=== PATIENT | male | born 1955 | race African-American/Black ===

== ENCOUNTER 2021-07-19 21:56 | Inpatient (IN) | payer MEDICAID ==
[~2021-07-19] VITALS: Ht 188 cm; Wt 69.0 kg
[2021-07-19] MEDS ORDERED: CHLO25TA3 PO (22:35)
[2021-07-19] MEDS ORDERED: AMLO10TA55 PO (22:35)
[2021-07-19] MEDS ORDERED: CLON-353 PO ×2 (22:35)
[2021-07-19] MEDS ORDERED: METF-845 PO (22:35)
[2021-07-19] MEDS ORDERED: GABA-1181 PO (22:35)
[2021-07-19] MEDS ORDERED: CLON-441 PO (22:35)
[2021-07-19] MEDS ORDERED: CLOP75TA14 PO (22:35)
[2021-07-19] MEDS ORDERED: ATOR80TA PO (22:38)
[2021-07-19] MEDS ORDERED: LISI-661 PO (22:38)
[2021-07-19] MEDS ORDERED: NALOXONE HCL 1 MG/ML 2 ML SYRINGE IVP ONE (23:00)
[2021-07-19 23:03] LABS: BASOPHILS % (AUTO) 2.6 % (0.0-2.0); EOSINOPHILS % (AUTO) 8.7 % (1.0-6.0); HEMATOCRIT 41.9 % (41-53); HEMOGLOBIN 13.8 g/dL (13.5-17.5); LYMPHOCYTES % (AUTO) 26.5 % (22.0-44.0); MEAN CORPUSCULAR HGB CONC 32.8 G/dL (31.0-37.0); MEAN CORPUSCULAR VOLUME 88 fL (80-100); MONOCYTES # (AUTO) 0.5 K/uL (0.1-1.0); NEUTROPHILS # (AUTO) 1.8 K/uL (1.8-7.7); NEUTROPHILS % (AUTO) 48.2 % (40.0-70.0); PLATELET COUNT (AUTO) 247 K/uL (150-450); RED BLOOD CELL COUNT(AUTO) 4.74 MIL/uL (4.50-5.90); RED CELL DISTRIBUTION WIDTH 14.8 % (11.5-14.5)
[2021-07-19 23:12] LABS: CALCIUM, TOTAL 9.1 mg/dL (8.8-10.5); CREATININE 1.64 mg/dL (0.60-1.30); POTASSIUM 4.1 mmol/L (3.5-5.1)
[2021-07-19 23:17] LABS: ALBUMIN 3.3 g/dL (3.4-5.0); BILIRUBIN,TOTAL 0.3 mg/dL (0.1-1.0); TOTAL PROTEIN, SERUM 8.1 g/dL (6.4-8.2)
[2021-07-20 01:06] LABS: COVID AG,FIA SOURCE NASAL SWAB
[2021-07-20] MEDS ORDERED: ONDANSETRON HCL 4 MG/2 ML VIAL IVP PRN (01:15)
[2021-07-20] MEDS ORDERED: ACETAMINOPHEN 325 MG TABLET PO PRN (01:15)
[2021-07-20 04:29] LABS: APPEARANCE,URINE CLEAR (CLEAR); BILIRUBIN,URINE NEGATIVE (NEGATIVE); GLUCOSE, URINE (UA) NEGATIVE (NEGATIVE); KETONES,URINE NEGATIVE (NEGATIVE); LEUKOCYTE ESTERASE ,URINE NEGATIVE (NEGATIVE); NITRATE,URINE NEGATIVE (NEGATIVE); OCCULT BLOOD,URINE NEGATIVE (NEGATIVE); PH,URINE 5.5 (5.0-8.0); PROTEIN,URINE TRACE mg/dL (NEGATIVE); SPECIFIC GRAVITIY, URINE 1.022 (1.003-1.030); UROBILINOGEN,URINE <=1.0 mg/dL (<=1.0)
[2021-07-20 04:36] LABS: AMPHET/METH SCREEN,URINE NEGATIVE (NEGATIVE); BARBITURATE SCREEN, URINE NEGATIVE (NEGATIVE); BENZODIAZEPINES SCREEN,URINE NEGATIVE (NEGATIVE); CANNABINOID SCREEN,URINE NEGATIVE (NEGATIVE); COCAINE SCREEN,URINE NEGATIVE (NEGATIVE); METHADONE SCREEN, URINE NEGATIVE (NEGATIVE); OPIATE SCREEN,URINE NEGATIVE (NEGATIVE)
[2021-07-20 04:37] LABS: PHENCYCLIDINE SCREEN,URINE NEGATIVE (NEGATIVE)
[2021-07-20 04:41] LABS: BACTERIA,URINE None Seen /HPF (None Seen); RBC,URINE None Seen /HPF (0-2); WBC,URINE None Seen /HPF (0-5)
[2021-07-20 04:42] LABS: HYALINE CASTS, URINE 0-2 /LPF (None Seen); MUCUS,URINE Few LPF (None Seen)
[2021-07-20 05:06] VITALS: BP 104/67
[2021-07-20 07:53] VITALS: BP 108/60
[2021-07-20] MEDS: CHLORTHALIDONE 25 MG TABLET PO SCH (09:00)
[2021-07-20] MEDS ORDERED: LISINOPRIL 10 MG TABLET PO SCH (09:00)
[2021-07-20] MEDS: ATORVASTATIN CALCIUM 40 MG TABLET PO SCH (09:34)
[2021-07-20] MEDS: CLOPIDOGREL BISULFATE 75 MG TABLET PO SCH (09:35)
[2021-07-20] MEDS: AmLODIPine BESYLATE 10 MG TABLET PO SCH (09:35)
[2021-07-20] MEDS: HEPARIN SODIUM,PORCINE 5,000 UNITS/ML VIAL SQ SCH ×3 (09:36→23:21)
[2021-07-20 11:18] VITALS: BP 137/64
[2021-07-20 13:21] LABS: GLUCOMETER DEV NAME(LOC) 5S.2B; GLUCOSE,POINT OF CARE 89 MG/DL (70-110)
[2021-07-20 15:43] VITALS: BP 107/64
[2021-07-20 18:21] LABS: GLUCOMETER DEV NAME(LOC) 5S.2B; GLUCOSE,POINT OF CARE 97 MG/DL (70-110)
[2021-07-20 19:43] VITALS: BP 105/65
[2021-07-20 23:32] VITALS: BP 110/70
[2021-07-21 04:22] VITALS: BP 135/75
[2021-07-21 08:02] VITALS: BP 125/73
[2021-07-21] MEDS: CLOPIDOGREL BISULFATE 75 MG TABLET PO SCH (08:09)
[2021-07-21] MEDS: ATORVASTATIN CALCIUM 40 MG TABLET PO SCH (08:09)
[2021-07-21] MEDS: AmLODIPine BESYLATE 10 MG TABLET PO SCH (08:09)
[2021-07-21] MEDS: HEPARIN SODIUM,PORCINE 5,000 UNITS/ML VIAL SQ SCH ×2 (08:10→17:37)
[2021-07-21] MEDS: CHLORTHALIDONE 25 MG TABLET PO SCH (08:18)
[2021-07-21 11:54] VITALS: BP 119/63
[2021-07-21 16:13] VITALS: BP 125/64
[2021-07-21 19:15] VITALS: BP 120/75
[2021-07-22] MEDS: HEPARIN SODIUM,PORCINE 5,000 UNITS/ML VIAL SQ SCH ×3 (00:21→16:39)
[2021-07-22 00:25] VITALS: BP 120/66
[2021-07-22 04:15] VITALS: BP 139/86
[2021-07-22 06:00] LABS: BASOPHILS % (AUTO) 1.5 % (0.0-2.0); EOSINOPHILS % (AUTO) 11.1 % (1.0-6.0); HEMATOCRIT 44.2 % (41-53); HEMOGLOBIN 14.5 g/dL (13.5-17.5); LYMPHOCYTES # (AUTO) 1.7 K/uL (1.0-4.8); MEAN CORPUSCULAR HGB CONC 32.9 G/dL (31.0-37.0); MEAN CORPUSCULAR VOLUME 88 fL (80-100); MONOCYTES # (AUTO) 0.5 K/uL (0.1-1.0); MONOCYTES % (AUTO) 11.3 % (2.0-9.0); NEUTROPHILS # (AUTO) 1.9 K/uL (1.8-7.7); NEUTROPHILS % (AUTO) 40.1 % (40.0-70.0); PLATELET COUNT (AUTO) 244 K/uL (150-450); RED CELL DISTRIBUTION WIDTH 14.6 % (11.5-14.5)
[2021-07-22 06:14] LABS: ANION GAP 2 mmol/L (8-16); CARBON DIOXIDE 34 mmol/L (22-29); CHLORIDE 99 mmol/L (98-107); CREATININE 1.16 mg/dL (0.60-1.30); GLOMERULAR FILTR. RATE CALC > 60 mL/min (>60); GLUCOSE,RANDOM 96 mg/dL (70-110); POTASSIUM 3.5 mmol/L (3.5-5.1); SODIUM SERUM 135 mmol/L (136-145); UREA NITROGEN, BLOOD 18 mg/dL (7-18)
[2021-07-22] MEDS: ATORVASTATIN CALCIUM 40 MG TABLET PO SCH (08:16)
[2021-07-22] MEDS: AmLODIPine BESYLATE 10 MG TABLET PO SCH (08:16)
[2021-07-22] MEDS: CLOPIDOGREL BISULFATE 75 MG TABLET PO SCH (08:17)
[2021-07-22] MEDS: CHLORTHALIDONE 25 MG TABLET PO SCH (08:17)
[2021-07-22 08:22] VITALS: BP 148/96
[2021-07-22 09:43] LABS: THYROID STIMULATING HORMONE 2.73 uIU/mL (0.36-3.74)
[2021-07-22 16:36] VITALS: BP 141/67
[2021-07-22 19:12] VITALS: BP 139/86
[2021-07-22 23:32] VITALS: BP 139/87
[2021-07-23 03:34] VITALS: BP 138/93
[2021-07-23 06:51] LABS: BASOPHILS % (AUTO) 2.5 % (0.0-2.0); EOSINOPHILS % (AUTO) 10.8 % (1.0-6.0); HEMOGLOBIN 15.4 g/dL (13.5-17.5); LYMPHOCYTES # (AUTO) 1.8 K/uL (1.0-4.8); LYMPHOCYTES % (AUTO) 40.4 % (22.0-44.0); MEAN CORPUSCULAR HEMOGLOBIN 29.3 pg (26.0-34.0); MEAN CORPUSCULAR HGB CONC 33.4 G/dL (31.0-37.0); MEAN CORPUSCULAR VOLUME 88 fL (80-100); MONOCYTES # (AUTO) 0.5 K/uL (0.1-1.0); MONOCYTES % (AUTO) 12.1 % (2.0-9.0); NEUTROPHILS # (AUTO) 1.5 K/uL (1.8-7.7); NEUTROPHILS % (AUTO) 34.2 % (40.0-70.0); PLATELET COUNT (AUTO) 272 K/uL (150-450); RED BLOOD CELL COUNT(AUTO) 5.25 MIL/uL (4.50-5.90); RED CELL DISTRIBUTION WIDTH 14.7 % (11.5-14.5)
[2021-07-23 07:03] LABS: ANION GAP 4 mmol/L (8-16); CALCIUM, TOTAL 9.3 mg/dL (8.8-10.5); CARBON DIOXIDE 31 mmol/L (22-29); CHLORIDE 98 mmol/L (98-107); CREATININE 1.07 mg/dL (0.60-1.30); GLOMERULAR FILTR. RATE CALC > 60 mL/min (>60); GLUCOSE,RANDOM 95 mg/dL (70-110); POTASSIUM 3.6 mmol/L (3.5-5.1); SODIUM SERUM 133 mmol/L (136-145); UREA NITROGEN, BLOOD 15 mg/dL (7-18)
[2021-07-23] MEDS: CHLORTHALIDONE 25 MG TABLET PO SCH (09:21)
[2021-07-23] MEDS: ATORVASTATIN CALCIUM 40 MG TABLET PO SCH (09:22)
[2021-07-23] MEDS: CLOPIDOGREL BISULFATE 75 MG TABLET PO SCH (09:23)
[2021-07-23] MEDS: AmLODIPine BESYLATE 10 MG TABLET PO SCH (09:23)
[2021-07-23] MEDS: HEPARIN SODIUM,PORCINE 5,000 UNITS/ML VIAL SQ SCH ×2 (09:23)
[2021-07-23 09:30] VITALS: BP 123/65
[2021-07-23 13:49] VITALS: BP 146/76
== END 2021-07-23 15:10 | disposition home or self-care (01) | DRG 52 ==
LOC: EMS 21:57 → 5N 07-20 02:01
PROVIDERS: ADMIT Internal Medicine; ATTEND Internal Medicine
DX: G93.41 Metabolic encephalopathy (principal); N17.9 Acute kidney failure, unspecified; E43 Unspecified severe protein-calorie malnutrition; D72.819 Decreased white blood cell count, unspecified; E86.0 Dehydration; E78.5 Hyperlipidemia, unspecified; E11.9 Type 2 diabetes mellitus without complications; I48.91 Unspecified atrial fibrillation; Z20.822 Contact with and (suspected) exposure to COVID-19; I10 Essential (primary) hypertension; R00.1 Bradycardia, unspecified; Z79.899 Other long term (current) drug therapy; Z79.02 Long term (current) use of antithrombotics/antiplatelets; Z68.1 Body mass index [BMI] 19.9 or less, adult
CPT/HCPCS: 70551; 71045; 80048; 80053; 81001; 82570; 82962; 84300; 84443; 84484; 85025; 85730; 93005; 93306; 95816; 99291; J1644; J2310; 36415-L1; 36415-TC; 70450; 70450-TC

== ENCOUNTER 2021-09-23 13:43 | Emergency (ER) | payer MEDICAID ==
[~2021-09-23] VITALS: Ht 182.9 cm; Wt 79.5 kg
[~2021-09-23 13:43] MED LIST: AMLO10TA55 PO; ATOR80TA PO; CHLO25TA3 PO; CLOP75TA14 PO; GABA-1181 PO; METF-845 PO
[2021-09-23 15:28] LABS: BASOPHILS % (AUTO) 0.3 % (0.0-2.0); EOSINOPHILS % (AUTO) 7.5 % (1.0-6.0); HEMATOCRIT 44.4 % (41-53); HEMOGLOBIN 14.9 g/dL (13.5-17.5); LYMPHOCYTES # (AUTO) 1.1 K/uL (1.0-4.8); MEAN CORPUSCULAR HEMOGLOBIN 29.6 pg (26.0-34.0); MEAN CORPUSCULAR HGB CONC 33.4 G/dL (31.0-37.0); MEAN CORPUSCULAR VOLUME 89 fL (80-100); MONOCYTES # (AUTO) 0.5 K/uL (0.1-1.0); MONOCYTES % (AUTO) 11.7 % (2.0-9.0); NEUTROPHILS # (AUTO) 2.4 K/uL (1.8-7.7); NEUTROPHILS % (AUTO) 55.5 % (40.0-70.0); PLATELET COUNT (AUTO) 239 K/uL (150-450); RED BLOOD CELL COUNT(AUTO) 5.02 MIL/uL (4.50-5.90); RED CELL DISTRIBUTION WIDTH 14.5 % (11.5-14.5)
[2021-09-23 15:40] LABS: ANION GAP 4 mmol/L (8-16); CALCIUM, TOTAL 9.2 mg/dL (8.8-10.5); CARBON DIOXIDE 34 mmol/L (22-29); CHLORIDE 103 mmol/L (98-107); CREATININE 1.28 mg/dL (0.60-1.30); GLOMERULAR FILTR. RATE CALC > 60 mL/min (>60); GLUCOSE,RANDOM 66 mg/dL (70-110); POTASSIUM 3.6 mmol/L (3.5-5.1); SODIUM SERUM 141 mmol/L (136-145); UREA NITROGEN, BLOOD 15 mg/dL (7-18)
[2021-09-23] MEDS ORDERED: ASPI81TA87 PO (16:59)
[2021-09-23] MEDS ORDERED: CLON0.1T2 PO (16:59)
[2021-09-23] MEDS ORDERED: LISI-893 PO (16:59)
[2021-09-23 17:18] VITALS: BP 160/95
== END 2021-09-23 18:04 | disposition home or self-care (01) ==
LOC: EMS 13:43
DX: R55 Syncope and collapse (principal); I10 Essential (primary) hypertension
CPT/HCPCS: 70450; 71045; 80048; 84484; 85025; 93005; 99285; 36415-L1; 36415-TC